=== PATIENT | male | born 1990 | race African-American/Black ===

== ENCOUNTER 2016-10-13 18:43 | Emergency (ER) | payer SELFPAY ==
[~2016-10-13] VITALS: Ht 180.3 cm; Wt 85.3 kg
[~2016-10-13 18:43] MED LIST: NOHOMEMEDS; VALIUM5 MG PO; ZOFRAN4 MG PO
[2016-10-13 19:02] VITALS: BP 115/74
[2016-10-13] MEDS ORDERED: MEDROL DOSEPAK4 MG PO (21:56)
== END 2016-10-13 22:18 | disposition home or self-care (01) ==
LOC: EXP 18:43 → EME 18:43 → EXP 22:18
DX: T78.40XA Allergy, unspecified, initial encounter (principal); R22.0 Localized swelling, mass and lump, head
CPT/HCPCS: 99281; 99284